=== PATIENT | female | born 1975 | race Native Hawaiian/Other Pacific Islander ===

== ENCOUNTER 2018-09-18 19:12 | Emergency (ER) | payer MEDICAID ==
[2018-09-18 19:33] VITALS: BP 142/85
[2018-09-18] MEDS ORDERED: SOLU-Medrol IM ONE (19:43)
[2018-09-18] MEDS ORDERED: PEPCID PO ONE (19:44)
[2018-09-18] MEDS ORDERED: BENADRYL PO ONE (19:44)
--- NOTE | 2018-09-18 19:50 | Emergency Department Report ---
HPI - General Chief Complaint: Allergic Reaction Time Seen by Provider: 09/18/18 19:42 - HPI HPI: Patient's a 43-year-old female, patient speaks fluent [place], who presents for a reaction after eating chocolate fruit approximately 200 and itching is no stridor no wheezing no chest pain, no dizziness or light headedness patient drove self to ED is ambulatory with steady gait to baseline per patient at this time, there is no resp distress. ED Past Medical Hx - Past Medical History Additional medical history: thyroid issues, anemia - Surgical History Past Surgical History?: No - Social History Smoking Status: Never Smoker Substance Use Type: None - Medications Home Medications: Home Medications Medication Instructions Recorded Confirmed Last Taken Type EPINEPHrine [Epipen 2-Guillermo] 0.3 mg IM PRN PRN #1 each 09/18/18 Unknown Rx Famotidine [Pepcid] 20 mg PO BID 7 Days #14 tablet 09/18/18 Unknown Rx diphenhydrAMINE [Benadryl CAP] 25 mg PO Q6HR PRN 7 Days #28 09/18/18 Unknown Rx capsule predniSONE [Deltasone] 40 mg PO QDAY 5 Days #10 tab 09/18/18 Unknown Rx ED Review of Systems ROS: Stated complaint: ALLERGIC REACTION Other details as noted in HPI Constitutional: denies: chills, fever Eyes: denies: eye pain, eye discharge, vision change ENT: throat pain. denies: ear pain, dental pain, hearing loss, congestion Respiratory: denies: cough, shortness of breath, wheezing Cardiovascular: denies: chest pain, palpitations Endocrine: no symptoms reported Gastrointestinal: denies: nausea, vomiting Genitourinary: denies: urgency, dysuria, discharge Musculoskeletal: denies: back pain, joint swelling, arthralgia Skin: denies: rash, lesions Neurological: denies: headache, weakness, paresthesias Psychiatric: denies: anxiety, depression Hematological/Lymphatic: denies: easy bleeding, easy bruising Physical Exam - Physical Exam Vital Signs: Vital Signs 09/18/18 19:29 Temperature 98.0 F Pulse Rate 88 Respiratory 18 Rate Blood Pressure 142/85 O2 Sat by Pulse 98 Oximetry General: No resp distress breathing is even nonlabored pt appears nontoxic Physical Exam: Ent exam : tms clear, sinus non tender, nose: patent no swelling no post nasal drip, pharynx is patent, mild erythema swelling no stridor no lesions no exudate uvula is midline lungs clear throughout no accessory muscle use breathing is nonlabored ED Course Vital Signs 09/18/18 19:29 Temperature 98.0 F Pulse Rate 88 Respiratory 18 Rate Blood Pressure 142/85 O2 Sat by Pulse 98 Oximetry ED Medical Decision Making - Medical Decision Making Symptoms improving, discussed prednisone, benadryl, pepcid and use of epipen for severe allergic reaction pt will follow up with pcp in 2-3 days or return to ed if symptoms worsen, pt verbalized agreement and understanding of discharge plan. pt is currently a/o x 3 ambulatory with steady gait at this time. Critical care attestation.: If time is entered above; I have spent that time in minutes in the direct care of this critically ill patient, excluding procedure time. ED Disposition Clinical Impression: Allergic reaction to food Qualifiers: Encounter type: initial encounter Qualified Code(s): T78.1XXA - Other adverse food reactions, not elsewhere classified, initial encounter Disposition: - TO HOME OR SELFCARE Is pt being admited?: No Does the pt Need Aspirin: No Condition: Stable Instructions: Epinephrine (Injection), Allergies (ED), Food Allergy (ED) Prescriptions: diphenhydrAMINE [Benadryl CAP] 25 mg PO Q6HR PRN 7 Days #28 capsule PRN Reason: Allergy Symptoms EPINEPHrine [Epipen 2-Guillermo] 0.3 mg IM PRN PRN #1 each PRN Reason: severe allergic reaction Famotidine [Pepcid] 20 mg PO BID 7 Days #14 tablet predniSONE [Deltasone] 40 mg PO QDAY 5 Days #10 tab Referrals: CAMILO GUAJARDO MD [Primary Care Provider] - 3-5 Days Forms: Work/School Release Form(ED) Time of Disposition: 20:17
== END 2018-09-18 20:27 | disposition home or self-care (01) ==
LOC: ED 19:12
DX: T78.1XXA Other adverse food reactions, not elsewhere classified, initial encounter (principal); Y92.89 Other specified places as the place of occurrence of the external cause
CPT/HCPCS: 96372; 99282; J2930